=== PATIENT | female | born 1930 | race Caucasian/White ===

== ENCOUNTER → 2017-02-12 | Outpatient (CLI) | payer MEDICARE ==
[~2017-02-12] MED LIST: AMLO5TAB2 PO; AMX500CIP PO; ASP81TEC PO; BETH25TA PO; CALTRATE 600 +1 EACH PO; CLCX100C PO; CLCX200C PO; GABAPENTIN; HAIR VITAMIN PO; HYDR10TA PO; LACT1CAP62 PO; LOSA1TAB19 PO; LSRT50T PO; MELO-198 PO; MTF500T PO; MULT-1029 PO; OMEG1CAP51 PO; RANI150T90 PO; TMZP15C PO; TRAM50TA2 PO; VIT1CAPS44 PO
[2017-02-12 09:34] LABS: BASOPHILS # (AUTO) 0.1 10^3/uL (0.0-0.1); BASOPHILS % (AUTO) 1 % (0-10); EOSINOPHILS # (AUTO) 0.1 10^3/uL (0.0-0.3); EOSINOPHILS % (AUTO) 1 % (0-10); LYMPHOCYTES # (AUTO) 1.3 X 10^3 (1.0-4.0); LYMPHOCYTES % (AUTO) 16 % (12-44); MEAN CORPUSCULAR HEMOGLOBIN 29 PG (25-34); MEAN CORPUSCULAR HGB CONC 33 G/DL (32-36); MEAN CORPUSCULAR VOLUME 88 FL (80-99); MEAN PLATELET VOLUME 10.1 FL (7.4-10.4); MONOCYTES # (AUTO) 0.8 X 10^3 (0.0-1.0); MONOCYTES % (AUTO) 10 % (0-12); NEUTROPHILS # (AUTO) 5.6 X 10^3 (1.8-7.8); NEUTROPHILS % (AUTO) 73 % (42-75); PLATELET COUNT 281 10^3/uL (130-400); RED BLOOD COUNT 4.63 10^6/uL (4.35-5.85); RED CELL DISTRIBUTION WIDTH 14.6 % (10.0-14.5); WHITE BLOOD COUNT 7.7 10^3/uL (4.3-11.0)
[2017-02-12 09:54] LABS: ANION GAP 14 MMOL/L (5-14); BLOOD UREA NITROGEN 16 MG/DL (7-18); BUN/CREATININE RATIO 22 (0-20); CALCIUM 9.9 MG/DL (8.5-10.1); CARBON DIOXIDE 22 MMOL/L (21-32); CHLORIDE 105 MMOL/L (98-107); CREATININE SERUM 0.73 MG/DL (0.60-1.30); GFR ESTIMATED > 60; GLUCOSE 124 MG/DL (70-105); HEMOLYSIS 3 (-100-29); ICTERUS 1.1 (-100-1.9); LIPEMIA 1 (-100-49); POTASSIUM 3.7 MMOL/L (3.6-5.0); SODIUM 141 MMOL/L (135-145)
[2017-02-12 10:15] LABS: THYROID STIMULATING HORMONE 2.89 UIU/ML (0.35-4.94)
== END ==
LOC: LAB 09:18
PROVIDERS: ATTEND Surgery
DX: R53.83 Other fatigue (principal); R68.2 Dry mouth, unspecified; R19.7 Diarrhea, unspecified
CPT/HCPCS: 36415; 80048; 84443; 85025

== ENCOUNTER 2017-02-28 06:48 | Outpatient (CLI) | payer MEDICARE ==
[~2017-02-28] VITALS: Ht 162.6 cm; Wt 68.5 kg
[2017-02-28] MEDS ORDERED: HYDR-3923 PO (14:14)
[2017-02-28] MEDS ORDERED: DULO30CA48 PO (14:14)
[2017-02-28] MEDS ORDERED: AMLO5TAB2 PO (14:14)
[2017-02-28] MEDS ORDERED: LOSA100T28 PO (14:14)
[2017-02-28] MEDS ORDERED: BETH25TA PO (14:14)
== END 2017-02-28 14:20 ==
LOC: PREOP 06:48
PROVIDERS: ATTEND Surgery
DX: Z01.818 Encounter for other preprocedural examination (principal); K21.9 Gastro-esophageal reflux disease without esophagitis; R19.5 Other fecal abnormalities

== ENCOUNTER 2017-03-04 11:30 | Day surgery (SDC) | payer MEDICARE ==
[~2017-03-04] VITALS: Ht 162.6 cm; Wt 68.5 kg
[~2017-03-04 11:30] MED LIST changes: +DULO30CA48 PO; +HYDR-3923 PO; +LOSA100T28 PO
[2017-03-04 11:50] VITALS: BP 155/64
[2017-03-04] MEDS ORDERED: NS IV 500 ML 500 ML ONE (12:00)
[2017-03-04] MEDS ORDERED: NS IV 500 ML 500 ML IV PRN (12:00)
[2017-03-04] MEDS ORDERED: HURRICAINE EXT TUBE (BENZOCAINE) XX PRN (12:00)
[2017-03-04] MEDS ORDERED: MIDAZOLAM 2 MG/2 ML (VERSED) VIAL IVP PRN (12:00)
[2017-03-04] MEDS ORDERED: fentaNYL INJECTION 100 MCG/2 ML AMP ONE ×2 (13:39→14:38)
[2017-03-04] MEDS ORDERED: MIDAZOLAM 2 MG/2 ML (VERSED) VIAL ONE ×5 (13:40→14:39)
[2017-03-04] MEDS ORDERED: HURRICAINE EXT TUBE (BENZOCAINE) ONE (13:40)
[2017-03-04] MEDS: fentaNYL INJECTION 100 MCG/2 ML AMP IVP PRN ×2 (13:46→13:50)
--- NOTE | 2017-03-04 13:56 | Conscious Sedation/ASA ---
Conscious Sedation Pre-Proced Time Reviewed: 13:05 ASA Class: 2 Airway Mallampati Classification: ([place] appropriate class) I. II. III, IV Lungs Heart ASA score ASA 1: a normal healthy patient ASA 2: a patient with a mild systemic disease (mid diabetes, controlled hypertension, obesity ASA 3: a patient with a severe systemic disease that limits activity (angina , COPD, prior Myocardial infarction) ASA 4: a patient with an incapacitating disease that is a constant threat to life (CHF, renal failure) ASA 5: a moribund patient not expected to survive 24 hrs. (ruptured aneurysm) ASA 6: a declared brain patient whose organs are being harvested. For emergent operations, add the letter E after the classification Grade 2 Sedation Plan: Discussed options with patient/fam Note The patient is an appropriate candidate to undergo the planned procedure, sedation, and anesthesia. The patient immediately re-assessed prior to indication. HELLEN FRANKLIN MD Mar 04, 2017 1:56 pm
--- NOTE | 2017-03-04 14:00 | Endo Procedure Record ---
Endo Procedure Report Date of Procedure Mar 04, 2017 Surgeon (s) HELLEN FRANKLIN MD Post Procedure/Op Diagnosis antral and duodenal ulcers Procedure Performed EGD with antral biopsy Description of Procedure Anesthesia Type: Conscious Sedation Specimen(s) collected/removed antral mucosa Description of the Procedure Indication for procedure; This lady came in for an upper endoscopy to evaluate episodes of melena. Informed consent was obtained after reviewing the procedure in detail Description of the procedure; she was placed in left lateral decubitus position and her vital signs were monitored. Conscious sedation was achieved using Versed and fentanyl. The flexible gastroscope was introduced down the esophagus, past the stomach, into the proximal duodenum Findings: Esophagus: Quite tortuous with a short hiatal hernia. Grade 2 esophagitis. Stomach: Multiple distal gastric erosions and ulcers were found. Biopsy for H. pylori was obtained. Duodenum:2 shallow erosions were found along the first part. She tolerated the procedure well and was taken back to the nursing area in a stable condition. Impression: History of melena. Gastric and duodenal ulcers and erosions. Helicobacter status pending. Copies To: clara matt D.O JENKINS, XAVIER M MD Mar 04, 2017 2:00 pm
[2017-03-04] MEDS ORDERED: PANT40TA2 PO (14:01)
--- NOTE | 2017-03-04 14:02 | Discharge Inst-Simple/Standard ---
Discharge Inst-Standard Discharge Medications New, Converted or Re-Newed RX: RX on Chart Patient Instructions/Follow Up Plan of Care/Instructions/FU: follow-up with her primary physician Activity as Tolerated: Yes Discharge Diet: No Restrictions HELLEN FRANKLIN MD Mar 04, 2017 2:02 pm
[2017-03-04 14:15] VITALS: BP 166/73
[2017-03-04 14:45] VITALS: BP 153/70
[2017-03-04 14:55] VITALS: BP 153/70
== END 2017-03-04 14:55 | disposition home or self-care (01) ==
LOC: ENDO 11:30
PROVIDERS: ATTEND Surgery
DX: K25.9 Gastric ulcer, unspecified as acute or chronic, without hemorrhage or perforation (principal); K26.9 Duodenal ulcer, unspecified as acute or chronic, without hemorrhage or perforation